=== PATIENT | male | born 1960 | race American Indian/Alaskan Native ===

== ENCOUNTER 2021-11-10 23:51 | Emergency (ER) | payer MEDICARE, OTHER ==
--- NOTE | 2021-11-11 02:30 | XRay Report ---
RIGHT HAND 3 VIEWS INDICATION / CLINICAL INFORMATION: Right thumb injury. COMPARISON: None available. FINDINGS: BONES and JOINT(S): No acute fracture or subluxation. No significant arthritis. SOFT TISSUES: A large laceration is seen involving the tip of the thumb with overlying bandage materi al and associated mild edema. No radiopaque foreign body or other significant abnormality. ADDITIONAL FINDINGS: None. IMPRESSION: Large right thumb laceration without other acute findings. Signer Name: Lucas Rhodes MD Signed: 11/11/2021 2:26 AM Workstation Name: [id number]
[2021-11-11 05:12] VITALS: BP 163/81
[2021-11-11] MEDS ORDERED: HYDROcodone/ACETAMINOPHEN 10-325MG TAB PO ONE (08:54)
[2021-11-11] MEDS ORDERED: TETANUS,DIPH,PERTUSS(ACELL) VACCINE 0.5 ML SYRINGE IM ONE (08:54)
--- NOTE | 2021-11-11 09:44 | Emergency Department Report ---
- General Chief Complaint: Wound/Laceration Stated Complaint: LACERATION TO THUMB (RT HAND) Time Seen by Provider: 11/11/21 08:53 Source: patient Mode of arrival: Ambulatory Limitations: No Limitations - History of Present Illness Initial Comments: This is a 60-year-old male nontoxic, well nourished in appearance, no acute signs of distress presents to the ED with c/o of right distal thumb amputation. Patient stated that while he was at work yesterday around 3 PM was cutting c heese which caused the imitation. Patient denies decreased sensation or range of motion. Patient stated bleeding is under control. Denies any numbness, tingling, fever, chills, nausea, vomiting, chest pain, shortness of breath, headache or stiff neck. Patient denies any allergies to significant past medical history. Patient is that he is not up-to-date with tetanus. -: days(s) Place: work Patient Tetanus UTD: No Context: accidental Associated Symptoms: pain. denies: loss of feeling/numbness, suspect foreign body present, unable to move injured part, weakness followed by dizziness, nausea/vomiting, fever - Related Data Previous Rx's Medication Instructions Recorded Last Taken Type Acetaminophen/Codeine [Tylenol 1 tab PO Q6H PRN #12 tab 11/11/21 Unknown Rx /Codeine # 3 tab] cephALEXin [Keflex] 500 mg PO Q6HR #28 capsule 11/11/21 Unknown Rx Allergies Allergy/AdvReac Type Severity Reaction Status Date / Time No Known Allergies Allergy Unverified 11/10/21 23:52 ED Review of Systems ROS: Stated complaint: LACERATION TO THUMB (RT HAND) Other details as noted in HPI Comment: All other systems reviewed and negative Constitutional: denies: chills, fever Eyes: denies: eye pain, eye discharge, vision change ENT: denies: ear pain, throat pain Respiratory: denies: cough, shortness of breath, wheezing Cardiovascular: denies: chest pain, palpitations Endocrine: no symptoms reported Gastrointestinal: denies: abdominal pain, nausea, diarrhea Genitourinary: denies: urgency, dysuria Musculoskeletal: denies: back pain, joint swelling, arthralgia Skin: denies: rash, lesions Neurological: denies: headache, weakness, paresthesias Psychiatric: denies: anxiety, depression Hematological/Lymphatic: denies: easy bleeding, easy bruising ED Past Medical Hx - Past Medical History Previous Medical History?: No - Surgical History Past Surgical History?: No - Social History Smoking Status: Current Every Day Smoker Substance Use Type: Marijuana - Medications Home Medications: Home Medications Medication Instructions Recorded Confirmed Last Taken Type Acetaminophen/Codeine [Tylenol 1 tab PO Q6H PRN #12 tab 11/11/21 Unknown Rx /Codeine # 3 tab] cephALEXin [Keflex] 500 mg PO Q6HR #28 capsule 11/11/21 Unknown Rx ED Physical Exam - General Limitations: No Limitations General appearance: alert, in no apparent distress - Head Head exam: Present: atraumatic, normocephalic - Eye Eye exam: Present: normal appearance - Neck Neck exam: Present: full ROM - Respiratory Respiratory exam: Absent: respiratory distress - Cardiovascular Cardiovascular Exam: Present: regular rate - Extremities Exam Extremities exam: Present: full ROM, tenderness, normal capillary refill. Absent: joint swelling - Expanded Upper Extremity Exam Right Shoulder Exam: Present: normal inspection, full ROM. Absent: tenderness, swelling Upper Arm exam: Present: normal inspection, full ROM. Absent: tenderness, swelling Elbow exam: Present: normal inspection, full ROM. Absent: tenderness, swelling Forearm Wrist exam: Present: normal inspection, full ROM. Absent: tenderness, swelling Hand Wrist exam: Present: full ROM, tenderness, amputation (Right distal thumb). Absent: swelling, abrasion, ecchymosis, deformity, crepidus, dislocation, erythema, nail avulsion, subungual hematoma Hand L/R Back: 1 - about 1 cm amputation to this area Vascular: Present: normal capillary refill. Absent: vascular compromise (Neurovascular within normal limits) - Back Exam Back exam: Present: full ROM - Neurological Exam Neurological exam: Present: alert, oriented X3, normal gait - Psychiatric Psychiatric exam: Present: normal affect, normal mood - Skin Skin exam: Present: warm, dry, intact, normal color. Absent: rash ED Course Vital Signs 11/10/21 11/11/21 23:52 05:11 Temperature 98.3 F Pulse Rate 83 81 Respiratory 18 16 Rate Blood Pressure 162/93 Blood Pressure 163/81 [Left] O2 Sat by Pulse 95 100 Oximetry - Reevaluation(s) Reevaluation #1: 11/11/21 09:42 Patient is speaking in full sentences with no signs of distress noted. ED Medical Decision Making - Radiology Data [facility] [address] [place] [address] XRay Report Signed Patient: JABIER KWON MR#: [id number] : 1960 Acct:[id number] Age/Sex: 60 / M ADM Date: 11/10/21 Loc: ED Attending Dr: Ordering Physician: MIRANDA BARAHONA MD Date of Service: 11/11/21 Procedure(s): XR finger(s) 2+V RT Accession Number(s): [id number] cc: MIRANDA BARAHONA MD Fluoro Time In Minutes: RIGHT HAND 3 VIEWS INDICATION / CLINICAL INFORMATION: Right thumb injury. COMPARISON: None available. FINDINGS: BONES and JOINT(S): No acute fracture or subluxation. No significant arthritis. SOFT TISSUES: A large laceration is seen involving the tip of the thumb with overlying bandage material and associated mild edema. No radiopaque foreign body or other signific ant abnormality. ADDITIONAL FINDINGS: None. IMPRESSION: Large right thumb laceration without other acute findings. Signer Name: Lucas Rhodes MD Signed: 11/11/2021 2:26 AM Workstation Name: [id number] Transcribed By: [place] Dictated By: Lucas Rhodes MD Electronically Authenticated By: Lucas Rhodes MD Signed Date/Time: 11/11/21225 DD/ 4 TD/TT: - Medical Decision Making This is a 60-year-old male that presents with right thumb amputation. Patient is stable and was examined by me. Area has been cleaned and a sterile dressing has been applied. Bleeding under control. Patient was educated on proper wound care. Patient is discharged with Keflex and Tylenol with codeine and was instructed not to operate any machinery while taking Tylenol with codeine due to drowsiness. Patient was instructed to refer to Follow-up with a orthopedic doctor in 3-5 days or if symptoms worsen and continue return to emergency room as soon as possible. At time of discharge, the patient does not seem toxic or ill in appearance. No acute signs of distress noted. Patient agrees to discharge treatment plan of care. No further questions noted by the patient. Critical care attestation.: If time is entered above; I have spent that time in minutes in the direct care of this critically ill patient, excluding procedure time. 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 Do not operate any machinery while taking Tylenol with codeine as this may cause drowsiness. No physical activity that extremity until cleared by orthopedic doctor Prescriptions: cephALEXin [Keflex] 500 mg PO Q6HR #28 capsule Acetaminophen/Codeine [Tylenol /Codeine # 3 tab] 1 tab PO Q6H PRN #12 tab PRN Reason: Pain , Severe (7-10) Referrals: PRIMARY CAREMD [Referring] - 3-5 Days BELTRAN WORTHY MD [Staff Physician] - 3-5 Days Forms: Work/School Release Form(ED) Time of Disposition: 09:45
== END 2021-11-11 10:35 | disposition home or self-care (01) ==
LOC: ED 23:51
DX: Z89.011 Acquired absence of right thumb (principal); F17.200 Nicotine dependence, unspecified, uncomplicated
CPT/HCPCS: 90471; 90715; 99283